=== PATIENT | female | born 1990 | race Caucasian/White ===

== ENCOUNTER 2017-10-07 18:25 | Emergency (ER) | payer MEDICAID ==
[~2017-10-07] VITALS: Ht 166.4 cm; Wt 44.5 kg
[2017-10-07] MEDS ORDERED: ibuprofen tablet 400 MG TABLET PO ONE (20:15)
[2017-10-07] MEDS ORDERED: acetaminophen 325mg tablet PO ONE (20:15)
[2017-10-07] MEDS ORDERED: BUPIVAcaine/PF 2.5 mg/ml (0.25%) 30ml vial IJ ONE (20:15)
[2017-10-07] MEDS ORDERED: BUPIVAcaine/PF 2.5mg/ml (0.25%) 10ml vial IJ ONE (20:35)
[2017-10-07 23:17] VITALS: BP 116/75
== END 2017-10-07 23:19 | disposition home or self-care (01) ==
LOC: ER 20:52
DX: S51.011A Laceration without foreign body of right elbow, initial encounter (principal); R20.2 Paresthesia of skin; F15.90 Other stimulant use, unspecified, uncomplicated; W26.8XXA Contact with other sharp object(s), not elsewhere classified, initial encounter; Y93.89 Activity, other specified; Y92.89 Other specified places as the place of occurrence of the external cause; Y99.8 Other external cause status
CPT/HCPCS: 12002; 73070; 99284; A6255; A6449; J3490; 96374

== ENCOUNTER 2017-10-25 14:11 | Outpatient (CLI) | payer MEDICAID ==
[2017-10-25 14:08] VITALS: BP 116/88
== END 2017-10-25 14:39 | disposition home or self-care (01) ==
LOC: ORTHO 14:11
PROVIDERS: ATTEND Nurse Practitioner Family
DX: S59.901D Unspecified injury of right elbow, subsequent encounter (principal); F12.90 Cannabis use, unspecified, uncomplicated; F17.210 Nicotine dependence, cigarettes, uncomplicated; F41.9 Anxiety disorder, unspecified; Z56.0 Unemployment, unspecified; X58.XXXD Exposure to other specified factors, subsequent encounter
CPT/HCPCS: 99214; A6449

== ENCOUNTER 2019-12-28 15:52 | Emergency (ER) | payer MEDICAID ==
[~2019-12-28] VITALS: Ht 167.6 cm; Wt 45.5 kg
[2019-12-28] MEDS ORDERED: normal saline 1000ML IV soln IVB ONE (16:05)
[2019-12-28] MEDS ORDERED: morphine 4 MG/ML inj SYRINge IV PRN (16:05)
[2019-12-28] MEDS ORDERED: ondansetron/PF 4mg/2ml inj IV ONE (16:05)
[2019-12-28] MEDS ORDERED: ketorolac tromethamine 15mg/ml inj. IV ONE (16:15)
[2019-12-28 16:26] LABS: CLARITY,URINE SLIGHTLY CLOUDY (Clear); COLOR,URINE YELLOW (Yellow); GLUCOSE, URINE NEGATIVE (Neg); KETONES,URINE TRACE mg/dl (Neg); LEUKOCYTE ESTERASE ,URINE NEGATIVE (Neg); NITRITES, URINE NEGATIVE (Neg); OCCULT BLOOD,URINE NEGATIVE (Neg); PH,URINE 5.5 (4.8-8.0); PROTEIN,URINE 100 mg/dl (Neg); UROBILINOGEN,URINE 0.2 E.U/dL (0.2-1.0)
[2019-12-28 16:27] LABS: UA COLLECTION TYPE CLN CATCH MIDSTREAM
[2019-12-28 16:31] LABS: URINE AMPHETAMINE SCREEN POSITIVE (Neg); URINE BARBITUATE SCREEN NEGATIVE (Neg); URINE BENZODIAZEPINES SCREEN NEGATIVE (Neg); URINE CANNABINOID SCREEN NEGATIVE (Neg); URINE COCAINE SCREEN NEGATIVE (Neg); URINE METHADONE SCREEN NEGATIVE (Neg); URINE OPIATE SCREEN POSITIVE (Neg); URINE PHENCYCLIDINE SCREEN NEGATIVE (Neg)
[2019-12-28 16:32] LABS: BACTERIA,URINE 3+ /HPF (Neg); MUCUS STRANDS MANY /LPF (Neg); RBC,URINE NONE SEEN /HPF (0-2); SQUAMOUS EPITHELIAL CELL,UR MANY /LPF (FEW)
[2019-12-28 16:55] LABS: BASOPHILS % (AUTO) 0.4 % (0-1); EOSINOPHILS # (AUTO) 0.1 X10'3 (0-0.9); EOSINOPHILS % (AUTO) 1.5 % (0-6); HEMATOCRIT 39.7 % (35.0-45.0); HEMOGLOBIN 13.5 g/dl (12.0-16.0); LYMPHOCYTES # (AUTO) 3.2 X10'3 (1.1-4.8); LYMPHOCYTES % (AUTO) 43.6 % (21-51); MEAN CORPUSCULAR HEMOGLOBIN 29.4 PG (27.0-31.0); MEAN CORPUSCULAR VOLUME 86.6 FL (78-98); MEAN PLATELET VOLUME 7.9 FL (7.4-10.4); MONOCYTES # (AUTO) 0.9 X10'3 (0-0.9); MONOCYTES % (AUTO) 11.9 % (2-12); NEUTROPHILS # (AUTO) 3.1 X10'3 (1.8-7.7); NEUTROPHILS % (AUTO) 42.6 % (42-75); PLATELET COUNT 246 X10'3 (140-440); RED BLOOD COUNT 4.59 X10'6 (4.20-5.60); RED CELL DISTRIBUTION WIDTH 12.3 % (11.5-14.5); WHITE BLOOD COUNT 7.2 X10'3 (4.5-11.0)
[2019-12-28 17:11] LABS: BETA HCG,QUANTITATIVE < 1.0 mIU/ml; ETHANOL < 0.010 GM/DL (0.0-0.010)
[2019-12-28 18:19] VITALS: BP 118/82
== END 2019-12-28 18:28 ==
LOC: ER 15:53
DX: R10.84 Generalized abdominal pain (principal); F15.10 Other stimulant abuse, uncomplicated; K59.00 Constipation, unspecified; F12.90 Cannabis use, unspecified, uncomplicated; Z56.0 Unemployment, unspecified
CPT/HCPCS: 36415; 74176; 80305; 80320; 81001; 84702; 85025; 96374; 96375; 99284; J1885; J2405; J7030

== ENCOUNTER 2020-09-26 09:57 | Emergency (ER) | payer MEDICAID ==
[~2020-09-26] VITALS: Ht 170.2 cm; Wt 68.2 kg
[2020-09-26 10:16] VITALS: BP 112/72
== END 2020-09-26 10:29 ==
LOC: ER 09:57
DX: Z00.8 Encounter for other general examination (principal); O26.93 Pregnancy related conditions, unspecified, third trimester; F11.90 Opioid use, unspecified, uncomplicated; F19.20 Other psychoactive substance dependence, uncomplicated; Z3A.32 32 weeks gestation of pregnancy; Z56.0 Unemployment, unspecified
CPT/HCPCS: 99283